=== PATIENT | female | born 1945 | race Caucasian/White ===

== ENCOUNTER 2019-07-16 14:36 | Inpatient (IN) | payer MEDICARE, OTHER ==
[~2019-07-16] VITALS: Ht 160 cm; Wt 82.1 kg
[2019-07-16 15:14] LABS: BASO % 1 % (0-3); EOS % 1 % (0-3); HEMATOCRIT 42.6 % (36.0-47.0); HEMOGLOBIN 14.2 g/dL (12.0-15.5); LYMPH # 2.4 x10^3/uL (1.0-4.8); LYMPH % 34 % (24-48); MEAN CORPUSCULAR HEMOGLOBIN 29 pg (25-35); MEAN CORPUSCULAR HGB CONC 33 g/dL (31-37); MEAN CORPUSCULAR VOLUME 88 fL (79-100); MONO # 0.4 x10^3/uL (0.0-1.1); MONO % 7 % (0-9); NEUT % 58 % (31-73); PLATELET COUNT 186 x10^3/uL (140-400); RED BLOOD COUNT 4.86 x10^6/uL (3.50-5.40); RED CELL DISTRIBUTION WIDTH 13.3 % (11.5-14.5); WHITE BLOOD COUNT 6.9 x10^3/uL (4.0-11.0)
[2019-07-16 15:26] LABS: BILIRUBIN,URINE NEG (NEG); CLARITY,URINE CLEAR; COLOR,URINE STRAW; GLUCOSE,URINE NEG (NEG)
[2019-07-16 15:27] LABS: BACTERIA,URINE 0 /HPF (0-FEW); NITRITE,URINE NEG (NEG); SQUAMOUS EPITHELIAL CELL,UR FEW /LPF; UROBILINOGEN,URINE 0.2 mg/dL (0.2 mg/dL)
[2019-07-16 15:28] LABS: AMPHETAMINE/METHAMPHETAMINE NEG (NEG); BARBITURATES NEG (NEG); BENZODIAZEPINES NEG (NEG); CANNABINOIDS NEG (NEG); COCAINE NEG (NEG); METHADONE NEG (NEG); OPIATES NEG (NEG); PHENCYCLIDINE NEG (NEG)
[2019-07-16 15:31] LABS: ALBUMIN 3.6 g/dL (3.4-5.0); CALCIUM 9.1 mg/dL (8.5-10.1); CREATININE 0.6 mg/dL (0.6-1.0); DIRECT BILIRUBIN 0.1 mg/dL (0.0-0.2); GFR 97.5; POTASSIUM 3.4 mmol/L (3.5-5.1); TOTAL BILIRUBIN 0.3 mg/dL (0.2-1.0); TOTAL PROTEIN 6.3 g/dL (6.4-8.2)
--- NOTE | 2019-07-16 15:39 | EKG ---
[address] [address] Test Date: 2019-07-16 Test Time: 15:06:05 Pat Name: LATISHA YANEZ Department: Room: Gender: F Advertising Strategist: BOBBI : 1945 Requested By: VAHE ALBRIGHT Order Number: [id number] Reading MD: Darrian Gruber MD Measurements Intervals [place] Rate: 74 P: 42 IL: 142 QRS: 20 QRSD: 70 T: 53 QT: 382 QTc: 424 Interpretive Statements SINUS RHYTHM Electronically Signed On 08-14-2019 16:25:20 ART FRAMING MANAGER by Darrian Grubre MD
--- NOTE | 2019-07-16 16:11 | PHYS DOC ---
Past History Past Medical History: Arthritis, Depression, GERD, Other Additional Past Medical Histor: AUTO-IMMUNE DISORDER Past Surgical History: No Surgical History Additional Past Surgical Histo: NO SURGICAL HISTORY PROVIDED Alcohol Use: None Drug Use: None Adult General Chief Complaint Chief Complaint: [facility] HPI Patient is a 74-year-old female who presents with complaint of feeling depressed and having a lot of anxiety. Patient states that she has been going through a great deal of stress over the last year. She denies any thoughts of harming herself but upon reviewing paperwork from doctor's office, patient reportedly had indicated that she was having some thoughts of self-harm. Patient denies any chest pain or shortness breath. She states that she just feels like she needs to get some help in dealing with all the stressors in her life right now.[] Review of Systems Review of Systems Constitutional: Denies fever or chills [] Respiratory: Denies cough or shortness of breath [] Cardiovascular: No additional information not addressed in HPI [] Integument: Denies rash or skin lesions [] Neurologic: Denies headache, focal weakness or sensory changes [] All other systems were reviewed and found to be within normal limits, except as documented in this note. Allergies Allergies Allergies Coded Allergies Type Severity Reaction Last Updated Verified morphine Allergy Unknown 07/16/19 Yes Physical Exam Physical Exam Constitutional: Well developed, well nourished, no acute distress, non-toxic appearance. [] HENT: Normocephalic, atraumatic, bilateral external ears normal, oropharynx moist, no oral exudates, nose normal. [] Eyes: PERRLA, EOMI, conjunctiva normal, no discharge. [] Neck: Normal range of motion, no tenderness, supple, no stridor. [] Cardiovascular: Regular rate and rhythm[] Lungs & Thorax: Bilateral breath sounds clear to auscultation [] Abdomen: Bowel sounds normal, soft, no tenderness. [] Skin: Warm, dry, no erythema, no rash. [] Extremities: No tenderness, no cyanosis, no clubbing, ROM intact. [] Neurologic: Alert and oriented X 3, no focal deficits noted. [] Psychologic: Flattened affect with depressed mood. [] Current Patient Data Vital Signs Vital Signs Date Time Temp Pulse Resp B/P (MAP) Pulse Ox O2 Delivery O2 Flow Rate FiO2 07/16/19 14:50 98.1 80 20 96 Room Air Lab Results Laboratory Tests Test 07/16/19 14:50 White Blood Count 6.9 x10^3/uL (4.0-11.0) Red Blood Count 4.86 x10^6/uL (3.50-5.40) Hemoglobin 14.2 g/dL (12.0-15.5) Hematocrit 42.6 % (36.0-47.0) Mean Corpuscular Volume 88 fL (79-100) Mean Corpuscular Hemoglobin 29 pg (25-35) Mean Corpuscular Hemoglobin Concent 33 g/dL (31-37) Red Cell Distribution Width 13.3 % (11.5-14.5) Platelet Count 186 x10^3/uL (140-400) Neutrophils (%) (Auto) 58 % (31-73) Lymphocytes (%) (Auto) 34 % (24-48) Monocytes (%) (Auto) 7 % (0-9) Eosinophils (%) (Auto) 1 % (0-3) Basophils (%) (Auto) 1 % (0-3) Neutrophils # (Auto) 4.0 x10^3uL (1.8-7.7) Lymphocytes # (Auto) 2.4 x10^3/uL (1.0-4.8) Monocytes # (Auto) 0.4 x10^3/uL (0.0-1.1) Eosinophils # (Auto) 0.0 x10^3/uL (0.0-0.7) Basophils # (Auto) 0.0 x10^3/uL (0.0-0.2) Urine Collection Type Unknown Urine Color Straw Urine Clarity Clear Urine pH 6.0 Urine Specific [place] <=1.005 Urine Protein Neg (NEG-TRACE) Urine Glucose (UA) Neg mg/dL (NEG) Urine Ketones (Stick) Neg mg/dL (NEG) Urine Blood Trace (NEG) Urine Nitrite Neg (NEG) Urine Bilirubin Neg (NEG) Urine Urobilinogen Dipstick 0.2 mg/dL (0.2 mg/dL) Urine Leukocyte Esterase Neg (NEG) Urine RBC 1-2 /HPF (0-2) Urine WBC 1-4 /HPF (0-4) Urine Squamous Epithelial Cells Few /LPF Urine Bacteria 0 /HPF (0-FEW) Sodium Level 145 mmol/L (136-145) Potassium Level 3.4 mmol/L (3.5-5.1) L Chloride Level 107 mmol/L (98-107) Carbon Dioxide Level 28 mmol/L (21-32) Anion Gap 10 (6-14) Blood Urea Nitrogen 5 mg/dL (7-20) L Creatinine 0.6 mg/dL (0.6-1.0) Estimated GFR (Cockcroft-Gault) 97.5 Glucose Level 92 mg/dL (70-99) Calcium Level 9.1 mg/dL (8.5-10.1) Total Bilirubin 0.3 mg/dL (0.2-1.0) Direct Bilirubin 0.1 mg/dL (0.0-0.2) Aspartate Amino Transferase (AST) 17 U/L (15-37) Alanine Aminotransferase (ALT) 26 U/L (14-59) Alkaline Phosphatase 70 U/L (46-116) Total Protein 6.3 g/dL (6.4-8.2) L Albumin 3.6 g/dL (3.4-5.0) Urine Opiates Screen Neg (NEG) Urine Methadone Screen Neg (NEG) Urine Barbiturates Neg (NEG) Urine Phencyclidine Screen Neg (NEG) Urine Amphetamine/Methamphetamine Neg (NEG) Urine Benzodiazepines Screen Neg (NEG) Urine Cocaine Screen Neg (NEG) Urine Cannabinoids Screen Neg (NEG) Ethyl Alcohol Level < 10 mg/dL (0-10) Urine Ethyl Alcohol Neg (NEG) EKG EKG [] Radiology/Procedures Radiology/Procedures [] Course & Med Decision Making Course & Med Decision Making Pertinent Labs and Imaging studies reviewed. (See chart for details) [] Dragon Disclaimer Dragon Disclaimer This electronic medical record was generated, in whole or in part, using a voice recognition dictation system. Departure Departure: Impression: Primary Impression: Depression Disposition: 09 ADMITTED INPATIENT Admitting Physician: Other (Dr. Moser) Condition: STABLE Referrals: NON,STAFF (PCP) Problem Qualifiers Primary Impression: Depression Depression Type: unspecified Qualified Codes: F32.9 - Major depressive disorder, single episode, unspecified VAHE ALBRIGHT Jr. DO Jul 16, 2019 16:11
[2019-07-16] MEDS ORDERED: CALC-584 PO (16:34)
[2019-07-16] MEDS ORDERED: MAGN250T2 PO (16:34)
[2019-07-16] MEDS ORDERED: FLUO20CA19 PO (16:34)
[2019-07-16] MEDS ORDERED: MULT1CAP15 PO (16:34)
[2019-07-16] MEDS ORDERED: PRED-220 PO (16:34)
[2019-07-16] MEDS ORDERED: TRIA15CR2 TP (16:34)
--- NOTE | 2019-07-16 18:30 | NUR ---
Admission Note with Justification for Admission to [facility] Patient admitted to [facility] for protective oversight for emergency stabilization of acute psychiatric crisis. Pt admitted from: Home via [facility] Emergency department Mode of arrival: EMS Accompanied By: Daughter/DPOA Precipitating behaviors that initiated intake and admission: Patient admitted from home for reportedly wishing she was , having decreased sleep, decreased appetite, being anxious, depressed, and hallucinating bugs all over her Description of failure of out patient attempts at stabilization in previous setting list behavior and medication trials: Patient's PCP recommended inpatient treatment Behaviors and assessment findings upon admission: Patient was anxious, cooperative, and coherent. She was upset when told that her stay would be for more than one day. She was dressed neatly and asked questions about the unit. Plan: Admit for protective oversight for adjustment and stabilization of medications, behaviors and mood. Intense treatment regimen including groups, medication adjustments, therapy, consistent regimen for ADL's, self care, and sleep hygiene. Daily monitoring by Inpatient staff, Psychiatry, and Medical Physician.
[2019-07-16 18:39] VITALS: BP 137/65
[2019-07-16] MEDS ORDERED: ACETAMINOPHEN 325 MG TABLET PO PRN (19:45)
--- NOTE | 2019-07-16 19:48 | PDOC ---
Exam Note: Braeden Note: Please also refer to the separate dictated note~for this date of service dictated separately. Discussed the patient with Nursing staff reviewed the chart.~Reviewed interim history and current functioning. Reviewed vital signs,~Labs/ Radiology~and current medications noted below. Continue current treatment with the changes noted in the dictated addendum note Assessment: Vital Signs/I&O: Vital Signs Date Time Temp Pulse Resp B/P (MAP) Pulse Ox O2 Delivery O2 Flow Rate FiO2 07/16/19 18:39 97.9 66 16 137/65 (89) 97 07/16/19 14:50 Room Air Labs: Laboratory Tests Test 07/16/19 14:50 White Blood Count 6.9 x10^3/uL (4.0-11.0) Red Blood Count 4.86 x10^6/uL (3.50-5.40) Hemoglobin 14.2 g/dL (12.0-15.5) Hematocrit 42.6 % (36.0-47.0) Mean Corpuscular Volume 88 fL (79-100) Mean Corpuscular Hemoglobin 29 pg (25-35) Mean Corpuscular Hemoglobin Concent 33 g/dL (31-37) Red Cell Distribution Width 13.3 % (11.5-14.5) Platelet Count 186 x10^3/uL (140-400) Neutrophils (%) (Auto) 58 % (31-73) Lymphocytes (%) (Auto) 34 % (24-48) Monocytes (%) (Auto) 7 % (0-9) Eosinophils (%) (Auto) 1 % (0-3) Basophils (%) (Auto) 1 % (0-3) Neutrophils # (Auto) 4.0 x10^3uL (1.8-7.7) Lymphocytes # (Auto) 2.4 x10^3/uL (1.0-4.8) Monocytes # (Auto) 0.4 x10^3/uL (0.0-1.1) Eosinophils # (Auto) 0.0 x10^3/uL (0.0-0.7) Basophils # (Auto) 0.0 x10^3/uL (0.0-0.2) Urine Collection Type Unknown Urine Color Straw Urine Clarity Clear Urine pH 6.0 Urine Specific [place] <=1.005 Urine Protein Neg (NEG-TRACE) Urine Glucose (UA) Neg mg/dL (NEG) Urine Ketones (Stick) Neg mg/dL (NEG) Urine Blood Trace (NEG) Urine Nitrite Neg (NEG) Urine Bilirubin Neg (NEG) Urine Urobilinogen Dipstick 0.2 mg/dL (0.2 mg/dL) Urine Leukocyte Esterase Neg (NEG) Urine RBC 1-2 /HPF (0-2) Urine WBC 1-4 /HPF (0-4) Urine Squamous Epithelial Cells Few /LPF Urine Bacteria 0 /HPF (0-FEW) Sodium Level 145 mmol/L (136-145) Potassium Level 3.4 mmol/L (3.5-5.1) L Chloride Level 107 mmol/L (98-107) Carbon Dioxide Level 28 mmol/L (21-32) Anion Gap 10 (6-14) Blood Urea Nitrogen 5 mg/dL (7-20) L Creatinine 0.6 mg/dL (0.6-1.0) Estimated GFR (Cockcroft-Gault) 97.5 Glucose Level 92 mg/dL (70-99) Calcium Level 9.1 mg/dL (8.5-10.1) Total Bilirubin 0.3 mg/dL (0.2-1.0) Direct Bilirubin 0.1 mg/dL (0.0-0.2) Aspartate Amino Transferase (AST) 17 U/L (15-37) Alanine Aminotransferase (ALT) 26 U/L (14-59) Alkaline Phosphatase 70 U/L (46-116) Total Protein 6.3 g/dL (6.4-8.2) L Albumin 3.6 g/dL (3.4-5.0) Urine Opiates Screen Neg (NEG) Urine Methadone Screen Neg (NEG) Urine Barbiturates Neg (NEG) Urine Phencyclidine Screen Neg (NEG) Urine Amphetamine/Methamphetamine Neg (NEG) Urine Benzodiazepines Screen Neg (NEG) Urine Cocaine Screen Neg (NEG) Urine Cannabinoids Screen Neg (NEG) Ethyl Alcohol Level < 10 mg/dL (0-10) Urine Ethyl Alcohol Neg (NEG) Current Medications: I have reviewed the current psychotropics carefully including drug interactions. Risk benefit ratio favors no change other than as noted in my dictated progress note. Diagnosis: Problems: (1) Depression (2) Anxiety disorder (3) Psychosis, atypical (4) Obsessive compulsive disorder JESSICA LINN MD Jul 16, 2019 19:48
--- NOTE | 2019-07-16 22:09 | NUR ---
Nursing Note Pt newly admitted, is in dayroom upon assessment is not happy she was admitted here. States all she did was go to her dr. wells today and wound up here. She says there is nothing wrong with her. Later she tells techs about how she is covered in bed bugs and they are crawling out of her pores. Pt is reluctant to talk to me during the interview, I had to drag the information out of her. She seems paranoid and suspicious of staff.
[2019-07-17 05:44] VITALS: BP 110/74
[2019-07-17] MEDS: MAGNESIUM OXIDE 400 MG TABLET PO SCH (08:21)
[2019-07-17] MEDS: TRIAMCINOLONE ACETONIDE 0.1% TOPICAL CREAM 15GM TUBE. TP SCH (08:21)
[2019-07-17] MEDS: CALCIUM CARB/VIT D3 500/200 TABLET PO SCH (08:21)
[2019-07-17] MEDS: MULTIVITAMIN with MINERAL TABLET. PO SCH (08:21)
[2019-07-17] MEDS: predniSONE 10 MG TABLET PO SCH (08:21)
[2019-07-17 08:35] LABS: BASO % 0 % (0-3); EOS % 1 % (0-3); HEMATOCRIT 41.9 % (36.0-47.0); HEMOGLOBIN 13.9 g/dL (12.0-15.5); LYMPH # 2.1 x10^3/uL (1.0-4.8); LYMPH % 32 % (24-48); MEAN CORPUSCULAR HEMOGLOBIN 29 pg (25-35); MEAN CORPUSCULAR HGB CONC 33 g/dL (31-37); MEAN CORPUSCULAR VOLUME 88 fL (79-100); MONO # 0.5 x10^3/uL (0.0-1.1); MONO % 8 % (0-9); NEUT # 3.9 x10^3uL (1.8-7.7); NEUT % 59 % (31-73); PLATELET COUNT 196 x10^3/uL (140-400); RED BLOOD COUNT 4.77 x10^6/uL (3.50-5.40); RED CELL DISTRIBUTION WIDTH 13.5 % (11.5-14.5); WHITE BLOOD COUNT 6.5 x10^3/uL (4.0-11.0)
[2019-07-17 08:49] LABS: ALBUMIN 3.6 g/dL (3.4-5.0); ALBUMIN/GLOBULIN RATIO 1.3 (1.0-1.7); CREATININE 0.5 mg/dL (0.6-1.0); GFR 120.3; MAGNESIUM 1.9 mg/dL (1.8-2.4); POTASSIUM 3.8 mmol/L (3.5-5.1); TOTAL BILIRUBIN 0.4 mg/dL (0.2-1.0); TOTAL PROTEIN 6.3 g/dL (6.4-8.2)
[2019-07-17] MEDS ORDERED: FLUoxetine HCL 20 MG CAPSULE PO SCH (09:00)
--- NOTE | 2019-07-17 10:03 | PN ---
DATE: 07/17/2019 PSYCHIATRIC PROGRESS NOTE This note covers the elements not covered in my initial note. SUBJECTIVE: I met with the patient in the morning of 07/17/2019. The patient states she slept reasonably well last night and in fact slept 5-1/4 hours. Appetite is fair. She is still depressed, still believes there are bugs coming out of her skin, but does not believe there are bed bugs here in the hospital. REVIEW OF SYSTEMS: No CV, , pulmonary, eye system symptoms on review. MENTAL STATUS EXAM: Oriented to herself and situation. Speech is coherent, abstraction fair, computation impaired, language function intact. Mood and affect still depressed, anxious, paranoid, psychotic. LABORATORY DATA: Reviewed. IMPRESSION: Major depressive disorder, recurrent with psychotic features, obsessive-compulsive disorder; anxiety disorder, unspecified; psychotic disorder, unspecified; mild cognitive impairment. PLAN: Continue Prozac 20 mg a day and I will give it another 24 hours and possibly add Risperdal at that stage. We may consider CT head if one has not been done recently. MAN Paula LINN MD DR: BENI/cynthia JOB#: [id number] / [id number]
--- NOTE | 2019-07-17 10:29 | HP ---
ADMIT DATE: 07/16/2019 PSYCHIATRIC ADMISSION HISTORY/EVALUATION This late entry 07/16/2019 covers elements not covered in my initial note 07/16/2019. SUBJECTIVE: I met with the patient evening of 07/16/2019, discussed with nursing staff, reviewed the chart and discussed with Kath Lee, talent coordinator, who obtained information from the patient's primary care provider at the [facility]. IDENTIFYING DATA: The patient is a 74-year-old female who lives in an independent apartment in [place], [place]. Reportedly, she has been increasingly depressed, isolative, withdrawn, hopeless, helpless, worthless, making statements that she wished she was . She is not sleeping well, has poor appetite, anxious, hallucinating, delusional, believing that there are bed bugs all over her bed and in her room despite repeated fumigations. She has failed outpatient psychiatric interventions, was referred for inpatient psychiatric stabilization. CHIEF COMPLAINT: "I collected the bed bugs. They took the bottle and said they were . Of course, they would be by then. They come out of my skin. They bite me. They said they do not see it, but bed bugs hide." HISTORY OF PRESENT ILLNESS: The patient reportedly relates being depressed for some time with marked insomnia, feeling hopeless, helpless, worthless, overwhelmed by the psychosocial stressors surrounding the bed bugs and having suicidal ideation. No plans, intent or attempt, however. No clear history of bipolar disorder. PAST PSYCHIATRIC HISTORY: As above. MEDICAL HISTORY: Positive for history of shingles, lymphoma in remission, polymyalgia rheumatica, rheumatoid arthritis, seborrheic keratoses. ACCU-CHEKS: None. DIET: Regular. MEDICATIONS: Takes them whole. Ambulates ad natividad. UA 07/16/2019 was negative. CODE STATUS: DNR. ALLERGIES: MORPHINE. CURRENT PSYCHOTROPICS: Prozac 20 mg a day. FAMILY HISTORY: Noncontributory. SOCIAL HISTORY: No history of alcohol, drug abuse, physical, sexual or elder abuse. She is not known to be a perpetrator. She states she used to work in the [employer]. REACTION TO HOSPITALIZATION: The patient accepting of it. ASSETS: Supportive family, stable living at the above facility other than the above stressors. MENTAL STATUS EXAMINATION: The patient was seen individually evening of 07/16/2019. She is well oriented, anxious, depressed. Speech is coherent, has some latency. Abstraction fair, computation impaired, language function intact. She is paranoid, suspicious, delusional, anxious, showing me tracks on her skin that she believes are caused by the bed bugs and other objects coming out of her body. No active suicidal or homicidal ideation. LABORATORY DATA: Reviewed. IMPRESSION: Major depressive disorder with psychotic features, obsessive-compulsive disorder; anxiety disorder, unspecified; psychotic disorder, unspecified; mild cognitive impairment. Rest unchanged as above. PLAN: Admit to geropsychiatry unit at [facility]. I will see the patient daily individually from a psychiatric standpoint. Medical followup with Dr. Yi. Continue the patient on her current psychotropics. Consider adding Risperdal 0.25 mg p.o. at bedtime for her psychosis after the baseline assessment. We will make further decisions about changes in psychotropics thereafter. Estimated length of stay 10-12 days. DISPOSITION: Plans perhaps back to the same assisted living. MAN Paula LINN MD DR: BEIN/cynthia JOB#: [id number] / [id number]
--- NOTE | 2019-07-17 11:52 | RAD ---
CT HEAD WO CONTRAST History: Mental status change Comparison: None. Technique: Noncontrast CT imaging was performed of the head. Exposure: One or more of the following individualized dose reduction techniques were utilized for this examination: 1. Automated exposure control 2. Adjustment of the mA and/or kV according to patient size 3. Use of iterative reconstruction technique. Findings: No acute extra-axial or parenchymal hemorrhage is identified. There is no significant intra-axial mass effect, midline shift, or extra-axial fluid collection. The delgado-white differentiation of the major vascular territories is preserved. Ventricular size is within normal limits. There is mild generalized supratentorial involutional change. The mastoid air cells and the visualized paranasal sinuses are aerated. No acute calvarial abnormality is identified. Impression: 1. No acute intracranial abnormality is identified. There is mild generalized supratentorial involutional change. Electronically signed by: Mike Inman MD (07/17/2019 11:49 AM) [facility]
[2019-07-17 12:06] LABS: THYROID STIM HORMONE (TSH) 3.141 uIU/mL (0.358-3.740)
[2019-07-17 16:10] VITALS: BP 107/70
--- NOTE | 2019-07-17 16:34 | NUR ---
Pt up adl to meals and out to groups. Pt told a detailed story about the bed bugs she had in her home and the ordeal she is having with the apartment managers regarding an exterminators. Pt very lucid regarding specific days she noticed symptoms, dates she went to and when she had her couch destroyed. Pt has been picking at clothing, hair and face saying she has some of the bugs. Most appeared to be skin scales, one had a red tint. Dr Yi took the samples on tape to lab. The red sample was ball of cloth fiber. Pt very adamant that all the things she is picking off self are bug. Has asked for tape to keep samples on.
--- NOTE | 2019-07-17 17:04 | NUR ---
Pt informed that samples she took off herself were not bed bugs. Pt stated she is not talking about bed bugs. She is talking about the bugs living in her skin. Stated the dried skin sample was from her head but that much skin should not be coming off her head. Pt description of "bugs" varied significantly.
[2019-07-17 17:07] LABS: THYROXINE 7.5 ug/dL (4.5-12.0)
--- NOTE | 2019-07-17 17:23 | CONS ---
DATE OF CONSULTATION: REASON FOR CONSULTATION: Consult for medical management. HISTORY OF PRESENT ILLNESS: The patient is a 74-year-old female patient, who was admitted on account from home for reportedly wishing she was , decreased sleep, decreased eating, anxious, depressed, hallucinating that bugs are all over her, all this in a background of a psychotic disorder. She described in detail what she found and how the bugs fall out from her hair and enter into her nose and her mouth and she in fact produced a sample of the bug that she sees and we actually looked at it under the microscope and it showed it was a clump of fibers from a sweater that she is wearing. Although the fact is that she might still have bedbugs at home, it is difficult without seeing actual bug too and given the elaborate story that she is telling us and that she had made a contract with the terminator and they could not see anything there, makes it unlikely that this is really a bug infestation. PAST MEDICAL HISTORY: Significant for lymphoma in remission. She also has a history of polymyalgia rheumatica and rheumatoid arthritis as well as a history of shingles and seborrheic keratosis. PAST SURGICAL HISTORY: Significant for hysterectomy. ALLERGIES: She is allergic to MORPHINE. MEDICATIONS: She is currently on following medications: She is on fluoxetine 20 mg once a day, calcium carbonate with vitamin D3 one tablet once a day, magnesium 250 mg once a day, and prednisone 10 mg once a day. She is also on triamcinolone acetonide applied topically daily for seborrheic keratoses and multivitamin 1 tablet once a day. FAMILY HISTORY: Unremarkable. SOCIAL HISTORY: She is and lives on her own in a subsidized apartment. Her daughter lives nearby. She apparently does not smoke, drink alcohol, or use any recreational drugs. PHYSICAL EXAMINATION: GENERAL: When I examined her, she was sitting comfortably on the chair, in no apparent respiratory distress. She was pale. No jaundice, cyanosis, or thyromegaly. No jugular venous distention. No limb edema. VITAL SIGNS: Her heart rate was 79, blood pressure was 107/70, temperature was 98.2, respiratory rate was 16, and oxygen saturation was 97% on room air. HEAD, EYES, EARS, NOSE, AND THROAT: Showed she is normocephalic and atraumatic. NECK: Supple. HEART: Showed normal first and second heart sounds. No gallop or murmur. CHEST: Clear to auscultation. No crepitation or rhonchi. ABDOMEN: Distended, soft, and nontender. NEUROLOGIC: She was awake, alert, and responding appropriately. All cranial nerves are intact. EXTREMITIES: She moves extremities without difficulty. She ambulates without assistance or assistive devices. LABORATORY WORK: Showed that her white cell count was 6900, hemoglobin 14, hematocrit 42, MCV 88, and platelet count of 186,000 with normal manual differential. Her chemistry showed a serum sodium of 143, potassium 3.8, chloride 107, bicarbonate 27, anion gap of 9, BUN 5, and creatinine was 0.5. Estimated GFR was 120 mL per minute. Her glucose was 107, calcium was 9, and magnesium was 1.9. Serum iron, TIBC, and iron saturation are all consistent with iron deficiency anemia. Her serum bilirubin, AST, ALT, and alkaline phosphatase were normal. Total protein was 6.3 and albumin 3.6. Her serum triglycerides were 165, total cholesterol was 229, LDL cholesterol was 146, VLDL was 33, and HDL was 50 and the ratio was 4. Her B12 was 405 pg/mL, 25-hydroxyvitamin D was 30, and TSH was normal at 313.141. Urinalysis was essentially unremarkable. Toxic screen was negative and her treponema pallidum antibodies were nonreactive. ASSESSMENT AND PLAN: In summary, this is a 74-year-old female patient, who was admitted on account of being depressed, wishing that she was , decreased sleep, decreased eating, anxious, depressed, and hallucinating that the bugs are all over her. She is here for inpatient psychiatric stabilization. From a medical point of view, she seemed to be generally stable. Her vital signs are all within normal range. Her lab work is also within normal range. She did produce a sample of what she says that is a bedbug, but looking at it under microscope showed it was a clump of fibers. It would be nice to talk to her daughter to see if there is any confirmation that she did have bugs at her house. Thank you, Dr. Moser for allowing me to participate in the care of this patient. TRUDI MATAMOROS MD DR: MAEVE/cynthia JOB#: [id number] / [id number]
--- NOTE | 2019-07-17 20:34 | PDOC ---
Exam Note: Braeden Note: Please also refer to the separate dictated note~for this date of service dictated separately.~Patient seen individually. Discussed the patient with Nursing staff reviewed the chart.~Reviewed interim history and current functioning. Reviewed vital signs,~Labs/ Radiology~and current medications noted below. Continue current treatment with the changes noted in the dictated addendum note Assessment: Vital Signs/I&O: Vital Signs Date Time Temp Pulse Resp B/P (MAP) Pulse Ox O2 Delivery O2 Flow Rate FiO2 07/17/19 16:10 98.2 79 16 107/70 (82) 97 07/16/19 14:50 Room Air I & O 07/16/19 07/16/19 07/17/19 15:00 23:00 07:00 Intake Total 240 ml Balance 240 ml Labs: Laboratory Tests Test 07/17/19 07:55 White Blood Count 6.5 x10^3/uL (4.0-11.0) Red Blood Count 4.77 x10^6/uL (3.50-5.40) Hemoglobin 13.9 g/dL (12.0-15.5) Hematocrit 41.9 % (36.0-47.0) Mean Corpuscular Volume 88 fL (79-100) Mean Corpuscular Hemoglobin 29 pg (25-35) Mean Corpuscular Hemoglobin Concent 33 g/dL (31-37) Red Cell Distribution Width 13.5 % (11.5-14.5) Platelet Count 196 x10^3/uL (140-400) Neutrophils (%) (Auto) 59 % (31-73) Lymphocytes (%) (Auto) 32 % (24-48) Monocytes (%) (Auto) 8 % (0-9) Eosinophils (%) (Auto) 1 % (0-3) Basophils (%) (Auto) 0 % (0-3) Neutrophils # (Auto) 3.9 x10^3uL (1.8-7.7) Lymphocytes # (Auto) 2.1 x10^3/uL (1.0-4.8) Monocytes # (Auto) 0.5 x10^3/uL (0.0-1.1) Eosinophils # (Auto) 0.0 x10^3/uL (0.0-0.7) Basophils # (Auto) 0.0 x10^3/uL (0.0-0.2) Sodium Level 143 mmol/L (136-145) Potassium Level 3.8 mmol/L (3.5-5.1) Chloride Level 107 mmol/L (98-107) Carbon Dioxide Level 27 mmol/L (21-32) Anion Gap 9 (6-14) Blood Urea Nitrogen 5 mg/dL (7-20) L Creatinine 0.5 mg/dL (0.6-1.0) L Estimated GFR (Cockcroft-Gault) 120.3 BUN/Creatinine Ratio 10 (6-20) Glucose Level 107 mg/dL (70-99) H Calcium Level 9.0 mg/dL (8.5-10.1) Magnesium Level 1.9 mg/dL (1.8-2.4) Iron Level 60 ug/dL (50-170) Total Iron Binding Capacity 309 ug/dL (250-450) Iron Saturation 19 % (15-34) Total Bilirubin 0.4 mg/dL (0.2-1.0) Aspartate Amino Transferase (AST) 20 U/L (15-37) Alanine Aminotransferase (ALT) 26 U/L (14-59) Alkaline Phosphatase 74 U/L (46-116) Total Protein 6.3 g/dL (6.4-8.2) L Albumin 3.6 g/dL (3.4-5.0) Albumin/Globulin Ratio 1.3 (1.0-1.7) Triglycerides Level 165 mg/dL (0-150) H Cholesterol Level 229 mg/dL (0-200) H LDL Cholesterol, Calculated 146 mg/dL (0-100) H VLDL Cholesterol, Calculated 33 mg/dL (0-40) Non-HDL Cholesterol Calculated 179 mg/dL (0-129) H HDL Cholesterol 50 mg/dL (40-60) Cholesterol/HDL Ratio 4.0 Vitamin B12 Level 405 pg/mL (247-911) 25-Hydroxy Vitamin D Total 30.5 ng/mL (30-100) Thyroid Stimulating Hormone (TSH) 3.141 uIU/mL (0.358-3.740) Thyroxine (T4) 7.5 ug/dL (4.5-12.0) Total Triiodothyronine (TT3) 150 ng/dL (71-180) Treponema pallidum Antibody Nonreactive (Nonreactive) Current Medications: Meds: Current Medications Medications (Trade) Dose Ordered Sig/Meagahn Route PRN Reason Start Time Stop Time Status Last Admin Dose Admin Fluoxetine HCl (PROzac) 20 mg DAILY PO 07/17/19 09:00 07/17/19 10:17 DC 07/17/19 08:21 Prednisone (Prednisone) 10 mg DAILY PO 07/17/19 09:00 07/17/19 08:21 Calcium/Vitamin D (Oscal D 500mg/ 200uts) 1 tab DAILY PO 07/17/19 09:00 07/17/19 08:21 Magnesium Oxide (Magnesium Oxide) 400 mg DAILY PO 07/17/19 09:00 07/17/19 08:21 Multivitamins/ Calcium (Thera-M Plus) 1 tab DAILY PO 07/17/19 09:00 07/17/19 08:21 Triamcinolone Acetonide (Kenalog) 1 alessia DAILY TP 07/17/19 09:00 07/17/19 08:21 I have reviewed the current psychotropics carefully including drug interactions. Risk benefit ratio favors no change other than as noted in my dictated progress note. Diagnosis: Problems: (1) Depression (2) Anxiety disorder (3) Psychosis, atypical (4) Obsessive compulsive disorder (5) Major depressive disorder, recurrent episode (6) Impulse control disorder JESSICA LINN MD Jul 17, 2019 20:34
--- NOTE | 2019-07-18 06:11 | NUR ---
Nursing Note the patient was very withdrawn this shift and spent most of her time in her room. The patient was appropriate during interactions with staff and peers. The patient is currently sleeping in her room.
[2019-07-18 06:24] VITALS: BP 114/71
[2019-07-18] MEDS: predniSONE 10 MG TABLET PO SCH (08:56)
[2019-07-18] MEDS: CALCIUM CARB/VIT D3 500/200 TABLET PO SCH (08:56)
[2019-07-18] MEDS: MULTIVITAMIN with MINERAL TABLET. PO SCH (08:56)
[2019-07-18] MEDS: TRIAMCINOLONE ACETONIDE 0.1% TOPICAL CREAM 15GM TUBE. TP SCH (08:56)
[2019-07-18] MEDS: MAGNESIUM OXIDE 400 MG TABLET PO SCH (08:56)
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
--- NOTE | 2019-07-18 12:05 | NUR ---
Patient has been calm, compliant, and pleasant today. She has been helpful with other patients, and stated she feels better being here and away from her apartment. She states she can feel bugs crawling on her head and down her body, and that her apartment is riddled with bed bugs. No insects observed on patient. Patient also states concern that the Prozac was discontinued, informed patient that we could discuss it with the MD. Will report to MD and continue to monitor.
[2019-07-18 15:31] VITALS: BP 109/70
[2019-07-18] MEDS: MAGNESIUM HYDROXIDE 2,400 MG/30 ML ORAL.SUSP. PO PRN (15:59)
[2019-07-18] MEDS: risperiDONE 0.25 MG TABLET. PO SCH (19:51)
--- NOTE | 2019-07-18 20:02 | PDOC ---
Exam Note: Braeden Note: Please also refer to the separate dictated note~for this date of service dictated separately.~Patient seen individually. Discussed the patient with Nursing staff reviewed the chart.~Reviewed interim history and current functioning. Reviewed vital signs,~Labs/ Radiology~and current medications noted below. Continue current treatment with the changes noted in the dictated addendum note Assessment: Vital Signs/I&O: Vital Signs Date Time Temp Pulse Resp B/P (MAP) Pulse Ox O2 Delivery O2 Flow Rate FiO2 07/18/19 15:31 98.4 72 16 109/70 (83) 96 07/18/19 06:24 Room Air I & O 07/17/19 07/17/19 07/18/19 14:59 22:59 06:59 Intake Total 600 ml 480 ml Balance 600 ml 480 ml Current Medications: Meds: Current Medications Medications (Trade) Dose Ordered Sig/Meaghan Route PRN Reason Start Time Stop Time Status Last Admin Dose Admin Risperidone (RisperDAL) 0.25 mg QHS PO 07/18/19 21:00 07/18/19 19:51 I have reviewed the current psychotropics carefully including drug interactions. Risk benefit ratio favors no change other than as noted in my dictated progress note. Diagnosis: Problems: (1) Depression (2) Anxiety disorder (3) Psychosis, atypical (4) Obsessive compulsive disorder (5) Major depressive disorder, recurrent episode (6) Impulse control disorder JESSICA LINN MD Jul 18, 2019 20:02
[2019-07-19 03:08] LABS: HEMOGLOBIN A1C 5.1 % (4.8-5.6)
--- NOTE | 2019-07-19 04:00 | NUR ---
Nursing Note The patient was compliant with her medication and was appropriate during interactions with this nurse. The patient did not talk as much this shift about insects in her apartment. The patient is currently sleeping in her room.
[2019-07-19 05:55] VITALS: BP 126/69
[2019-07-19] MEDS: TRIAMCINOLONE ACETONIDE 0.1% TOPICAL CREAM 15GM TUBE. TP SCH (08:17)
[2019-07-19] MEDS: MULTIVITAMIN with MINERAL TABLET. PO SCH (08:17)
[2019-07-19] MEDS: MAGNESIUM OXIDE 400 MG TABLET PO SCH (08:17)
[2019-07-19] MEDS: FLUoxetine HCL 20 MG CAPSULE PO SCH (08:17)
[2019-07-19] MEDS: predniSONE 10 MG TABLET PO SCH (08:17)
[2019-07-19] MEDS: CALCIUM CARB/VIT D3 500/200 TABLET PO SCH (08:17)
--- NOTE | 2019-07-19 09:51 | NUR ---
Pt is calm, cooperative, compliant. No agitation, no aggression. She denies hallucinations. No hallucinations and delusions noted. States she is hear for depression and anxiety. She is A & O X 4.
--- NOTE | 2019-07-19 14:15 | NUR ---
ACTIVITY THERAPY ASSESSMENT Completed based on observation and interview. Pt. was in her room, laying in bed but was agreeable to speak with CLOUD SOFTWARE ENGINEER. When asked about leisure interest and hobbies, she explained it has been difficult the last two months. She explained there were bed bugs in her apartment and this happened a few years ago. A few years ago though, she was given Permethrin cream to cover her entire body with for 24 hours which seemed to help but she didnt have that cream this time. Pt. 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 She enjoys meeting with her mandaen friends and studying the bible. Pt. spoke about her depression, overwhelming thoughts, negative thinking, skin issues, and being hard on herself. At one point, she stopped, scratched her hair/shaking her head to show flakes falling out (only one small dot did). She also grabbed a black blanket and rubbed in on her arm and leg to show the white residue that came off, she explained this happened because of the bed bugs that leave behind something that doubles skin cells. CLOUD SOFTWARE ENGINEER wore a black shirt that day, rubbed her shirt along her arm which also left behind a white residue. Pt. confirmed she saw that but said hers was different. Pt. talked in more detail about her thoughts: finding/focusing on the negatives, comparing her troubles with others and thinking she should be doing better, wondering if she was a good enough mother, having difficulty naming any positive qualities, and she shared she didnt want to kill herself but wanted to . CLOUD SOFTWARE ENGINEER and Pt. talked about benefits of journaling and the possibility of long wall shear operator/consistent counseling. Pt. was concerned about being here and missing appointments she has scheduled but CLOUD SOFTWARE ENGINEER reassured her that her Extractor Tender Raw Stock will be assisting in communicating with her family and any doctor offices. Pt. is willing to go to all groups and would like to try journaling and wants to start a gratitude list. Initial goal aimed to increase self-esteem and engagement: Pt. will participate in all Activity Therapy groups that are offered. Addendum: 07/26/19 at 1528 by CHRISTIN WOMACK ACT Journal with prompts and felt tipped pen with metal cap clip removed was given to Pt. on this day at 1300. Along with these materials, CLOUD SOFTWARE ENGINEER provided Pt. with a print out of bible verses on anxiety and fear that she requested.
[2019-07-19 15:46] VITALS: BP 130/77
[2019-07-19] MEDS: risperiDONE 0.25 MG TABLET. PO SCH (19:11)
--- NOTE | 2019-07-19 20:42 | NUR ---
Nursing Note The patient was calm and cooperative with her assessment and medication pass. The patient was calmly talking with another patient in the hallway. The patient took her medication whole.
--- NOTE | 2019-07-19 21:49 | PDOC ---
Exam Note: Braeden Note: Please also refer to the separate dictated note~for this date of service dictated separately.~Patient seen individually. Discussed the patient with Nursing staff reviewed the chart.~Reviewed interim history and current functioning. Reviewed vital signs,~Labs/ Radiology~and current medications noted below. Continue current treatment with the changes noted in the dictated addendum note Assessment: Vital Signs/I&O: Vital Signs Date Time Temp Pulse Resp B/P (MAP) Pulse Ox O2 Delivery O2 Flow Rate FiO2 07/19/19 15:46 97.4 60 16 130/77 (94) 95 07/18/19 06:24 Room Air I & O 07/18/19 07/18/19 07/19/19 15:00 23:00 07:00 Intake Total 600 ml 480 ml Balance 600 ml 480 ml Current Medications: Meds: Current Medications Medications (Trade) Dose Ordered Sig/Meaghan Route PRN Reason Start Time Stop Time Status Last Admin Dose Admin Fluoxetine HCl (PROzac) 20 mg DAILY PO 07/19/19 09:00 07/19/19 08:17 I have reviewed the current psychotropics carefully including drug interactions. Risk benefit ratio favors no change other than as noted in my dictated progress note. Diagnosis: Problems: (1) Depression (2) Anxiety disorder (3) Psychosis, atypical (4) Obsessive compulsive disorder (5) Major depressive disorder, recurrent episode (6) Impulse control disorder JESSICA LINN MD Jul 19, 2019 21:49
[2019-07-20 05:50] VITALS: BP 110/74
[2019-07-20] MEDS: CALCIUM CARB/VIT D3 500/200 TABLET PO SCH (08:21)
[2019-07-20] MEDS: predniSONE 10 MG TABLET PO SCH (08:21)
[2019-07-20] MEDS: MAGNESIUM OXIDE 400 MG TABLET PO SCH (08:21)
[2019-07-20] MEDS: TRIAMCINOLONE ACETONIDE 0.1% TOPICAL CREAM 15GM TUBE. TP SCH (08:22)
[2019-07-20] MEDS: FLUoxetine HCL 20 MG CAPSULE PO SCH (08:22)
[2019-07-20] MEDS: MULTIVITAMIN with MINERAL TABLET. PO SCH (08:22)
--- NOTE | 2019-07-20 10:20 | NUR ---
No agitation, no aggression. Pt is calm, cooperative, compliant. She denies hallucinations. No hallucinations and delusions noted. States she is hear for depression and anxiety. She is A & O X 4.
[2019-07-20 16:06] VITALS: BP 125/74
[2019-07-20] MEDS: risperiDONE 0.25 MG TABLET. PO SCH (20:08)
[2019-07-20] MEDS: MAGNESIUM HYDROXIDE 2,400 MG/30 ML ORAL.SUSP. PO PRN (20:13)
--- NOTE | 2019-07-20 20:33 | PDOC ---
Exam Note: Braeden Note: Please also refer to the separate dictated note~for this date of service dictated separately.~Patient seen individually. Discussed the patient with Nursing staff reviewed the chart.~Reviewed interim history and current functioning. Reviewed vital signs,~Labs/ Radiology~and current medications noted below. Continue current treatment with the changes noted in the dictated addendum note Assessment: Vital Signs/I&O: Vital Signs Date Time Temp Pulse Resp B/P (MAP) Pulse Ox O2 Delivery O2 Flow Rate FiO2 07/20/19 16:06 97.6 70 16 125/74 (91) 97 07/18/19 06:24 Room Air I & O 07/19/19 07/19/19 07/20/19 14:59 22:59 06:59 Intake Total 480 ml 220 ml Balance 480 ml 220 ml Current Medications: I have reviewed the current psychotropics carefully including drug interactions. Risk benefit ratio favors no change other than as noted in my dictated progress note. Diagnosis: Problems: (1) Anxiety disorder (2) Psychosis, atypical (3) Obsessive compulsive disorder (4) Major depressive disorder, recurrent episode (5) Impulse control disorder JESSICA LINN MD Jul 20, 2019 20:33
--- NOTE | 2019-07-20 21:47 | PN ---
DATE: 07/18/2019 PSYCHIATRIC PROGRESS NOTE This late entry 07/18/2019 covers elements not covered in my initial note. SUBJECTIVE: I met with the patient individually. Per nursing report, the patient has been hyperverbal. The nursing staff had called me as an emergency wondering if the Prozac could be contributing to the itching in her head and had discontinued it at the time. As I discussed this with the patient, she stated she has been on Prozac for about 14 years, never had that problem, does not believe the itching is related to the Prozac once it was restarted and we will go ahead and do that. The patient remains a little paranoid. She has been less obsessed about bugs all over her body. REVIEW OF SYSTEMS: Positive for some tiredness. No CV, , pulmonary, eye system symptoms on review. MENTAL STATUS EXAM: Oriented reasonably. Speech coherent, abstraction fair, computation somewhat impaired, language function intact, attention span short. Mood and affect remain somewhat anxious, slightly paranoid, obsessive. LABORATORY DATA: Reviewed. IMPRESSION: Unchanged from initial note. PLAN: Restart Prozac, start Risperdal 0.25 mg p.o. at bedtime to augment the Prozac and as an atypical antipsychotic. Rest unchanged for now. JESSICA LINN MD DR: BENI/cynthia JOB#: [id number] / [id number]
--- NOTE | 2019-07-20 22:21 | PN ---
DATE: 07/19/2019 PSYCHIATRIC PROGRESS NOTE This late entry date of service 07/19/2019 covers the elements not covered in my initial note. SUBJECTIVE: I met with the patient individually. Overall, the patient states she is doing better. She was restarted back on Prozac 20 mg a day. She is still somewhat delusional similar to what brought her into the hospital and we added Risperdal 0.25 mg p.o. at bedtime. REVIEW OF SYSTEMS: No CV, , pulmonary, eye system symptoms on review. MENTAL STATUS EXAM: Reasonably oriented. Speech is coherent, abstraction fair, computation impaired, language function intact. Mood and affect is improved. LABORATORY DATA: Reviewed. IMPRESSION: Major depressive disorder with psychotic features, obsessive-compulsive delusional disorder versus psychotic disorder, unspecified. Rest unchanged. PLAN: Maintain Prozac and Risperdal at current dosage. We will make further adjustments as clinically indicated. JESSICA LINN MD DR: BENI/cynthia JOB#: [id number] / [id number]
--- NOTE | 2019-07-20 22:37 | NUR ---
Nursing Note Pt denies SI, hallucinations, and no evidence of delusions. Compliant and cooperative with meds.
[2019-07-21 06:09] VITALS: BP 127/77
[2019-07-21] MEDS: predniSONE 10 MG TABLET PO SCH (07:57)
[2019-07-21] MEDS: CALCIUM CARB/VIT D3 500/200 TABLET PO SCH (07:57)
[2019-07-21] MEDS: MAGNESIUM OXIDE 400 MG TABLET PO SCH (07:57)
[2019-07-21] MEDS: FLUoxetine HCL 20 MG CAPSULE PO SCH (07:57)
[2019-07-21] MEDS: MULTIVITAMIN with MINERAL TABLET. PO SCH (07:58)
[2019-07-21] MEDS: TRIAMCINOLONE ACETONIDE 0.1% TOPICAL CREAM 15GM TUBE. TP SCH (07:58)
[2019-07-21] MEDS: METHYL SALICYLATE/MENTHOL TOPICAL OINTMENT 57GM TUBE. TP PRN (09:00)
--- NOTE | 2019-07-21 11:22 | NUR ---
KENNA spoke to pt. at pt. request. Pt. has an appointment with her Hair Machine Operator on 07/23/2019 and would like it to be changed to the first Sunday in August. Pt. was also inquiring about outpatient therapy. KENNA discussed with pt. the services provided by the [facility], which pt. appear willing to try. Lastly, pt. asked about discharge. KENNA reported a discharge date has not been set, as the doctor may still be adjusting pt. medications and may want to address her lack of sleep. KENNA called pt. daughter, Nancy, who reports she will change pt. Rheumatology appointment. Nancy is concerned pt. may return to her previous behaviors when she returns home but does plan to stop by the apartment complex to discuss the matter with the supply manager. KENNA shared pt. inquired about outpatient therapy and suggested at time of discharge they go straight to the [facility] for pt. intake.
[2019-07-21] MEDS ORDERED: SODIUM CHLORIDE 0.65% NASAL SPRAY 45ML BOTTLE. NS PRN (13:45)
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
[2019-07-21 16:03] VITALS: BP 98/63
[2019-07-21] MEDS ORDERED: MELATONIN 3 MG TABLET PO PRN (18:30)
--- NOTE | 2019-07-21 18:30 | NUR ---
patient has been calm, compliant, and appropriate today. She has been social with peers and interactive cody group activities. Patient expressed concerns about changing a MD appt she has on Sunday and needing therapy after discharge, informed patient I would pass her concerns on to SW. Will continue to monitor and report to oncoming shift.
[2019-07-21] MEDS: risperiDONE 0.25 MG TABLET. PO SCH (19:50)
--- NOTE | 2019-07-21 20:50 | PDOC ---
Exam Note: Braeden Note: Please also refer to the separate dictated note~for this date of service dictated separately.~Patient seen individually. Discussed the patient with Nursing staff reviewed the chart.~Reviewed interim history and current functioning. Reviewed vital signs,~Labs/ Radiology~and current medications noted below. Continue current treatment with the changes noted in the dictated addendum note Assessment: Vital Signs/I&O: Vital Signs Date Time Temp Pulse Resp B/P (MAP) Pulse Ox O2 Delivery O2 Flow Rate FiO2 07/21/19 16:03 97.8 89 16 98/63 (75) 97 07/18/19 06:24 Room Air I & O 07/20/19 07/20/19 07/21/19 15:00 23:00 07:00 Intake Total 720 ml 720 ml Balance 720 ml 720 ml Current Medications: Meds: Current Medications Medications (Trade) Dose Ordered Sig/Meaghan Route PRN Reason Start Time Stop Time Status Last Admin Dose Admin Melatonin (Melatonin) 3 mg PRN QHS PRN PO INSOMNIA 07/21/19 18:30 07/21/19 19:56 I have reviewed the current psychotropics carefully including drug interactions. Risk benefit ratio favors no change other than as noted in my dictated progress note. Diagnosis: Problems: (1) Depression (2) Anxiety disorder (3) Psychosis, atypical (4) Obsessive compulsive disorder (5) Major depressive disorder, recurrent episode (6) Impulse control disorder JESSICA LINN MD Jul 21, 2019 20:50
--- NOTE | 2019-07-21 22:15 | PN ---
DATE: 07/20/2019 PSYCHIATRIC PROGRESS NOTE This late entry 07/20/2019 covers elements not covered in my initial note. SUBJECTIVE: I met with the patient in the evening of 07/20/2019. Overall, the patient seems to be doing better, a little more interactive. She has not talked about suicidal ideation or hallucinating with bugs all over. She is tolerating Prozac 20 mg a day, Risperdal 0.25 mg daily. REVIEW OF SYSTEMS: No CV, , pulmonary, eye system symptoms on review. MENTAL STATUS EXAM: Reasonably oriented. Speech is coherent, abstraction fair, computation impaired, language function intact. Mood and affect is improved. LABORATORY DATA: Reviewed. IMPRESSION: Unchanged from initial note. PLAN: No change from initial note. MAN Paula LINN MD DR: BENI/cynthia JOB#: [id number] / [id number]
--- NOTE | 2019-07-21 23:19 | NUR ---
Nursing Note Pt denies SI, hallucinations, and no evidence of delusions. Compliant and cooperative with meds. Complains of a dry nose, saline spray given.
[2019-07-22 05:42] VITALS: BP 120/75
[2019-07-22] MEDS: MULTIVITAMIN with MINERAL TABLET. PO SCH (08:26)
[2019-07-22] MEDS: predniSONE 10 MG TABLET PO SCH (08:26)
[2019-07-22] MEDS: FLUoxetine HCL 20 MG CAPSULE PO SCH (08:26)
[2019-07-22] MEDS: CALCIUM CARB/VIT D3 500/200 TABLET PO SCH (08:26)
[2019-07-22] MEDS: MAGNESIUM OXIDE 400 MG TABLET PO SCH (08:26)
[2019-07-22] MEDS: TRIAMCINOLONE ACETONIDE 0.1% TOPICAL CREAM 15GM TUBE. TP SCH (08:26)
[2019-07-22] MEDS: METHYL SALICYLATE/MENTHOL TOPICAL OINTMENT 57GM TUBE. TP PRN (09:58)
[2019-07-22 15:44] VITALS: BP 105/56
--- NOTE | 2019-07-22 16:49 | NUR ---
Patient has been calm, compliant, and appropriate today. She has been social with peers and interactive during group activities. Patient spent most of the shift in the day room working on Foxtrotgsaw puzzles. Will continue to monitor and report to oncoming shift.
[2019-07-22] MEDS: MELATONIN 3 MG TABLET PO SCH (20:24)
[2019-07-22] MEDS: risperiDONE 0.25 MG TABLET. PO SCH (20:24)
[2019-07-22] MEDS: MAGNESIUM HYDROXIDE 2,400 MG/30 ML ORAL.SUSP. PO PRN (20:30)
--- NOTE | 2019-07-22 20:33 | PDOC ---
Exam Note: Braeden Note: Please also refer to the separate dictated note~for this date of service dictated separately.~Patient seen individually. Discussed the patient with Nursing staff reviewed the chart.~Reviewed interim history and current functioning. Reviewed vital signs,~Labs/ Radiology~and current medications noted below. Continue current treatment with the changes noted in the dictated addendum note Assessment: Vital Signs/I&O: Vital Signs Date Time Temp Pulse Resp B/P (MAP) Pulse Ox O2 Delivery O2 Flow Rate FiO2 07/22/19 15:44 97.6 69 16 105/56 (72) 93 07/18/19 06:24 Room Air I & O 07/21/19 07/21/19 07/22/19 15:00 23:00 07:00 Intake Total 840 ml 900 ml Balance 840 ml 900 ml Current Medications: Meds: Current Medications Medications (Trade) Dose Ordered Sig/Meaghan Route PRN Reason Start Time Stop Time Status Last Admin Dose Admin Melatonin (Melatonin) 3 mg QHS PO 07/22/19 21:00 07/22/19 20:24 I have reviewed the current psychotropics carefully including drug interactions. Risk benefit ratio favors no change other than as noted in my dictated progress note. Diagnosis: Problems: (1) Anxiety disorder (2) Psychosis, atypical (3) Obsessive compulsive disorder (4) Major depressive disorder, recurrent episode (5) Impulse control disorder JESSICA LINN MD Jul 22, 2019 20:33
--- NOTE | 2019-07-22 21:08 | PN ---
DATE: 07/21/2019 PSYCHIATRIC PROGRESS NOTE This late entry 07/21/2019 covers elements not covered in my initial note. SUBJECTIVE: I met with the patient evening of 07/21/2019. Per SHEBA Doe, the patient slept 6-1/2 hours previous night. She has denied feeling bugs all over her body, which is an improvement. She states she did not sleep at night, wants to try melatonin, which we will start 3 mg at bedtime. REVIEW OF SYSTEMS: No CV, , pulmonary, eye system symptoms on review. MENTAL STATUS EXAM: Reasonably oriented. Speech coherent, somewhat rapid at times. Abstraction fair, computation impaired, language function intact, attention span short. Mood and affect is improved. LABORATORY DATA: Reviewed. IMPRESSION: Unchanged from initial note. PLAN: No change from initial note other than noted above. MAN Paula LINN MD DR: BENI/cynthia JOB#: [id number] / [id number]
--- NOTE | 2019-07-22 23:30 | NUR ---
Pt located in the dayroom this evening, interacting with another female peer and completing a puzzle. Pt calm and compliant with whole medications. PRN MOM administered per pt request.
[2019-07-23 05:57] VITALS: BP 118/64
[2019-07-23 07:06] LABS: BASO % 0 % (0-3); EOS % 1 % (0-3); HEMATOCRIT 42.6 % (36.0-47.0); HEMOGLOBIN 13.8 g/dL (12.0-15.5); LYMPH # 2.3 x10^3/uL (1.0-4.8); LYMPH % 37 % (24-48); MEAN CORPUSCULAR HEMOGLOBIN 29 pg (25-35); MEAN CORPUSCULAR HGB CONC 32 g/dL (31-37); MEAN CORPUSCULAR VOLUME 88 fL (79-100); MONO # 0.5 x10^3/uL (0.0-1.1); MONO % 8 % (0-9); NEUT # 3.4 x10^3uL (1.8-7.7); NEUT % 53 % (31-73); PLATELET COUNT 201 x10^3/uL (140-400); RED BLOOD COUNT 4.83 x10^6/uL (3.50-5.40); RED CELL DISTRIBUTION WIDTH 13.4 % (11.5-14.5); WHITE BLOOD COUNT 6.3 x10^3/uL (4.0-11.0)
[2019-07-23 07:25] LABS: ALBUMIN 3.4 g/dL (3.4-5.0); ALBUMIN/GLOBULIN RATIO 1.3 (1.0-1.7); CALCIUM 8.9 mg/dL (8.5-10.1); CREATININE 0.5 mg/dL (0.6-1.0); GFR 120.3; POTASSIUM 3.8 mmol/L (3.5-5.1); TOTAL BILIRUBIN 0.3 mg/dL (0.2-1.0); TOTAL PROTEIN 6.1 g/dL (6.4-8.2)
[2019-07-23] MEDS: MULTIVITAMIN with MINERAL TABLET. PO SCH (08:16)
[2019-07-23] MEDS: predniSONE 10 MG TABLET PO SCH (08:16)
[2019-07-23] MEDS: TRIAMCINOLONE ACETONIDE 0.1% TOPICAL CREAM 15GM TUBE. TP SCH (08:16)
[2019-07-23] MEDS: MAGNESIUM OXIDE 400 MG TABLET PO SCH (08:16)
[2019-07-23] MEDS: CALCIUM CARB/VIT D3 500/200 TABLET PO SCH (08:16)
[2019-07-23] MEDS: FLUoxetine HCL 20 MG CAPSULE PO SCH (08:17)
--- NOTE | 2019-07-23 14:21 | NUR ---
SW spoke to pt. daughter, Nancy, who called due to missing a call from the hospital. Pt. was the one attempting to contact daughter regarding paying her rent and phone. Nancy reports she did pay these bills earlier in the week. KENNA shared this information with pt. Nancy requested SW begin talking with pt. 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 SW will make time each day to meet with pt. to discuss these matters. Nancy also reported pt. did mention "the bugs" to her family earlier in the week, as she had asked if pt. had said anything about them to this SW, which pt. has not.
[2019-07-23 15:39] VITALS: BP 102/64
--- NOTE | 2019-07-23 18:09 | NUR ---
Patient has been calm, compliant, and appropriate today. She has been social with peers and interactive during group activities. Patient spent most of the shift in the day room working on jigsaw puzzles between groups and meals. Will continue to monitor and report to oncoming shift.
[2019-07-23] MEDS: risperiDONE 0.25 MG TABLET. PO SCH (20:05)
[2019-07-23] MEDS: MELATONIN 3 MG TABLET PO SCH (20:05)
[2019-07-23] MEDS ORDERED: POLYETHYLENE GLYCOL 3350 17 GM PACKET. PO PRN (20:15)
--- NOTE | 2019-07-23 21:31 | PN ---
DATE: 07/22/2019 PSYCHIATRIC PROGRESS NOTE This late entry 07/22/2019 covers the elements not covered in my initial note. SUBJECTIVE: I met with the patient in the evening of 07/22/2019. Per SHEBA Doe, the patient slept 7 hours previous night. She has had a good day and is doing better. Cognitively, she seems intact, less depressed, anxious, less obsessed about things coming out of her skin. REVIEW OF SYSTEMS: Still has some perception of things coming out of her skin, but much less than before. REVIEW OF SYSTEMS: No CV, , pulmonary, eye system symptoms on review. MENTAL STATUS EXAMINATION: The patient is reasonably oriented. Speech is coherent, abstraction fair, computation somewhat impaired, language function intact. Mood and affect is improved. LABORATORY DATA: Reviewed. IMPRESSION: Unchanged from initial note. PLAN: No change from initial note. MAN Paula LINN MD DR: BENI/cynthia JOB#: [id number] / [id number]
--- NOTE | 2019-07-23 23:16 | NUR ---
Pt located in dayroom this evening, interacting with peers and working on puzzles. Pt calm, cooperative and compliant with medications. Pt continues to complain of constipation. PRN Miralax administered.
--- NOTE | 2019-07-23 23:18 | PN ---
DATE: 07/23/2019 SUBJECTIVE: The patient was seen today, met with the staff, chart reviewed and also covering for Dr. Moser. The patient continues to having problems with increased stress. Denies of any suicidal ideation. Denies of any delusional thinking. Also, denies of having any overt psychotic symptoms, but she still believes when she scratches her scalp, she sees bugs falling. The patient still feels that there are bugs on her body. The patient apparently has a fixed delusion about this. OBSERVATION: VITAL SIGNS: Temperature 96.8, blood pressure 118/64, pulse 64, respirations 20, O2 sat 98%. Slept about 7 hours last night. LABORATORY DATA: The patient's lab reviewed. MEDICATIONS: The patient's current medications include melatonin 3 mg at night, fluoxetine 20 mg daily, Risperdal 0.25 mg at night. The patient is also on prednisone 10 mg daily. ASSESSMENT: The patient's diagnosis is generalized anxiety disorder; delusional disorder, not otherwise specified. PLAN: Continue with the current treatment plan. The patient is not having any side effects to medications. MISTI HANNA MD DR: TONY/cynthia JOB#: [id number] / [id number]
[2019-07-24 06:01] VITALS: BP 114/61
[2019-07-24] MEDS: FLUoxetine HCL 20 MG CAPSULE PO SCH (08:03)
[2019-07-24] MEDS: MAGNESIUM OXIDE 400 MG TABLET PO SCH (08:03)
[2019-07-24] MEDS: CALCIUM CARB/VIT D3 500/200 TABLET PO SCH (08:03)
[2019-07-24] MEDS: TRIAMCINOLONE ACETONIDE 0.1% TOPICAL CREAM 15GM TUBE. TP SCH (08:03)
[2019-07-24] MEDS: MULTIVITAMIN with MINERAL TABLET. PO SCH (08:03)
[2019-07-24] MEDS: predniSONE 10 MG TABLET PO SCH (08:03)
[2019-07-24] MEDS: METHYL SALICYLATE/MENTHOL TOPICAL OINTMENT 57GM TUBE. TP PRN (08:04)
--- NOTE | 2019-07-24 09:17 | NUR ---
WEEKLY NOTE Pt. is alert and orient X4. Pt. denies SI, hallucinations, or delusions. Pt. is medication compliant and cooperative with assessments. Pt. has been pleasant and interactive with both staff and other pts. Pt. is tentatively schedule to discharge back to her apartment the middle of next week with outpatient follow up service through [facility].
--- NOTE | 2019-07-24 09:58 | NUR ---
KENNA met with pt., per daughter's request. Pt. reports she continues to have trouble sleeping and has "more pain then normal." KENNA explained to pt. her pit manager will not allow pt. to get an outside music director but that pt. daughter does plan to clean pt. apartment prior to discharge. KENNA explained to pt., her daughter is concerned pt. will resort back to the behaviors she had prior to her arrival, as she continues to have anxiety regarding the bed bugs. Pt. did become somewhat anxious and upset during the conversation, as she stated "They go through cycles." KENNA also explained to pt., the need to not bother the pit manager regarding this matter. Pt. reports one more write up and she will be evicted. After extended conversation, pt. did commit to unpacking her things when she returns and reports she will not bother the pit manager. Pt. continues to be open to outpatient counseling at the [facility]. Pt. feels she "is on vacation" as her family has reported she has smiled more here then she has in a long time. Pt. expressed the desire to spend time with her friends and return to the [facility].
--- NOTE | 2019-07-24 10:34 | NUR ---
Nursing Note Patient is in the dining room, pleasant, and social. She is compliant with medications and cooperative with assessments. She is AOx4. She denies depression, visual hallucinations and delusions. Patient has been interactive with both staff and other patients. She is currently in the day room participating in group. Will continue to monitor.
[2019-07-24 16:02] VITALS: BP 105/70
--- NOTE | 2019-07-24 19:43 | NUR ---
WEEKLY ACTIVITY THERAPY NOTE Date of Admission: 07/16/2019 Date of AT Assessment: 07/19/2019 Goal aimed: to increase self-esteem and engagement Initial Goal: Pt. will participate in all Activity Therapy groups that are offered. Weekly progress towards goal: slept through one group and chose to not watch [employer] movie on Sunday Group participation level: full Weekly highlights: willing to follow Linden Chi moves on Sunday and drumming activity on Sunday Behaviors observed: usually fully engaged, smiled often, chats with peers, gives insight/ shares experiences, reports depression and negative thinking during assessment Plan: no change to goal Beneficial adaptations: wake up/ invites to group
--- NOTE | 2019-07-24 19:54 | PN ---
DATE: 07/24/2019 SUBJECTIVE: The patient was seen today, I met with the staff, chart reviewed. Staff reports no evidence of any psychosis, not verbalized any suicidal ideation. The patient continues to have high level of anxiety. The patient still has some delusional thinking, which is fixed and sees bugs on her upper extremities and she also demonstrated that when she scratches her scalp, when things fall, and she thinks that all bugs are running around. The patient is not acting upon her delusions. OBSERVATION: VITAL SIGNS: Temperature 97.4, blood pressure 114/61, pulse 59, respirations 20, O2 sat 94%. Slept about 6 hours last night. CURRENT MEDICATIONS: The patient's current medications include melatonin 3 mg at night, fluoxetine 20 mg daily, Risperdal 0.25 mg at night. The patient is also on prednisone 10 mg daily. ASSESSMENT: Generalized anxiety disorder, delusional disorder. PLAN: Continue with the current treatment plan. LENGTH OF STAY: 3-5 days. MISTI HANNA MD DR: TONY/cynthia JOB#: [id number] / [id number]
[2019-07-24] MEDS: MELATONIN 3 MG TABLET PO SCH (20:20)
[2019-07-24] MEDS: risperiDONE 0.25 MG TABLET. PO SCH (20:20)
[2019-07-24] MEDS: MAG HYDROX/AL HYDROX/SIMETH 30 ML ORAL.SUSP PO PRN (20:48)
--- NOTE | 2019-07-25 00:51 | NUR ---
Pt located in the dayroom this evening, putting a puzzle together with another pt. Compliant with medications and assessment. pt had no complaints at the time.
[2019-07-25 05:49] VITALS: BP 123/64
[2019-07-25] MEDS: CALCIUM CARB/VIT D3 500/200 TABLET PO SCH (08:05)
[2019-07-25] MEDS: MAGNESIUM OXIDE 400 MG TABLET PO SCH (08:05)
[2019-07-25] MEDS: MULTIVITAMIN with MINERAL TABLET. PO SCH (08:05)
[2019-07-25] MEDS: predniSONE 10 MG TABLET PO SCH (08:05)
[2019-07-25] MEDS: FLUoxetine HCL 20 MG CAPSULE PO SCH (08:05)
[2019-07-25] MEDS: TRIAMCINOLONE ACETONIDE 0.1% TOPICAL CREAM 15GM TUBE. TP SCH (08:06)
--- NOTE | 2019-07-25 10:30 | NUR ---
KENNA met with pt. to discuss how she is feeling regarding her return to her apartment. Pt. still believes the bed bugs are not gone, but is trying to remain optimistic. Pt. shared she is looking forward to being with friends and going back to the [facility]. Pt. remains open to outpatient therapy and perhaps a case manage through the [facility]. Pt. appeared in good spirits and reports she is feeling better.
[2019-07-25] MEDS: METHYL SALICYLATE/MENTHOL TOPICAL OINTMENT 57GM TUBE. TP PRN (10:40)
--- NOTE | 2019-07-25 11:04 | NUR ---
Patient was in the dining room during morning rounding. Took medications whole, allowed for morning assessment. Patient mentioned wanting some muscle rub on her back and shoulders. This was given @1040. No agitation noted, pt denies any other pain. Has been visiting with other patients. Will continue to monitor.
--- NOTE | 2019-07-25 12:19 | NUR ---
SW received permission from pt. daughter, Nancy, to faxed paperwork to the [facility] in [place] and to schedule follow up services for outpatient care.
[2019-07-25 16:22] VITALS: BP 99/63
[2019-07-25] MEDS: risperiDONE 0.25 MG TABLET. PO SCH (19:43)
[2019-07-25] MEDS: MELATONIN 3 MG TABLET PO SCH (19:44)
--- NOTE | 2019-07-25 20:56 | NUR ---
Nursing note: Assumed care of pt in the day room. She was pleasant and cooperative, no c/o pain, no behaviors. She is watching a movie with peers.
--- NOTE | 2019-07-26 00:16 | PN ---
DATE: 07/25/2019 SUBJECTIVE: The patient was seen today, met with the staff, chart reviewed. Staff reports no major behavior problems. The patient is complaining of not able to sleep. The patient has not complained about having any visual hallucinations including seeing bugs on her clothing. OBSERVATION: VITAL SIGNS: Temperature 97.8, blood pressure 123/64, pulse 73, respirations 16, O2 sat 94%. Slept about 7 hours last night. LABORATORY DATA: The patient's lab reviewed. MEDICATIONS: The patient's current medications include melatonin 3 mg at night, fluoxetine 20 mg daily, Risperdal 0.25 mg at night. The patient is also on prednisone 10 mg daily. ASSESSMENT: 1. Generalized anxiety disorder. 2. Delusional disorder, unspecified. PLAN: Continue with the treatment. The patient's melatonin to be increased to 6 mg at night. MISTI HANNA MD DR: TONY/cynthia JOB#: [id number] / [id number]
[2019-07-26 06:37] VITALS: BP 114/74
[2019-07-26] MEDS: MAGNESIUM OXIDE 400 MG TABLET PO SCH (08:43)
[2019-07-26] MEDS: FLUoxetine HCL 20 MG CAPSULE PO SCH (08:43)
[2019-07-26] MEDS: MULTIVITAMIN with MINERAL TABLET. PO SCH (08:43)
[2019-07-26] MEDS: CALCIUM CARB/VIT D3 500/200 TABLET PO SCH (08:43)
[2019-07-26] MEDS: predniSONE 10 MG TABLET PO SCH (08:43)
[2019-07-26] MEDS: MAG HYDROX/AL HYDROX/SIMETH 30 ML ORAL.SUSP PO PRN ×2 (08:44→20:34)
[2019-07-26] MEDS: METHYL SALICYLATE/MENTHOL TOPICAL OINTMENT 57GM TUBE. TP PRN (08:44)
[2019-07-26] MEDS: TRIAMCINOLONE ACETONIDE 0.1% TOPICAL CREAM 15GM TUBE. TP SCH (08:44)
--- NOTE | 2019-07-26 11:09 | NUR ---
Patient was in the dining room during morning rounding, took medications whole, allowed for morning assessment. Patient mentioned to the nurse that she wanted Mylanta and analgesic balm. This was given @0844. Patient denies pain, has been cheerful and visiting with other patients. Will continue to monitor.
[2019-07-26 15:51] VITALS: BP 109/72
[2019-07-26] MEDS: risperiDONE 0.25 MG TABLET. PO SCH (20:16)
[2019-07-26] MEDS: MELATONIN 3 MG TABLET PO SCH (20:17)
[2019-07-26] MEDS: MAGNESIUM HYDROXIDE 2,400 MG/30 ML ORAL.SUSP. PO PRN (20:33)
--- NOTE | 2019-07-26 22:04 | PN ---
DATE: 07/26/2019 SUBJECTIVE: The patient was seen today, met with the staff, chart reviewed. The patient still withdrawn, isolative, not shown any major behavior problems. The patient is still complaining of not able to sleep, but sleeping fairly well. The patient is no longer complaining of any visual or auditory hallucinations including seeing bugs on her clothing. OBSERVATION: VITAL SIGNS: Temperature 97.8, blood pressure 109/72, pulse 69, respirations 16, O2 sat 95%. The patient slept about 7-1/2 hours last night. The patient's appetite is fair. LABORATORY DATA: The patient's lab reviewed. MEDICATIONS: The patient's current medications include melatonin 3 mg at night, fluoxetine 20 mg daily, Risperdal 0.25 mg at night. The patient is not having any side effects. ASSESSMENT: Generalized anxiety disorder, delusional disorder, unspecified. PLAN: To continue with the treatment. The patient's melatonin was increased to 6 mg last night. LENGTH OF STAY: 3-5 days. MISTI HANNA MD DR: TONY/cynthia JOB#: [id number] / [id number]
--- NOTE | 2019-07-26 22:51 | NUR ---
Nursing Note Pt given yaritza and MOM states she has dyspepsia and constipation since arrival to our unit. Pleasant and cooperative very social with her peers.
[2019-07-27 06:23] VITALS: BP 124/77
[2019-07-27] MEDS: FLUoxetine HCL 20 MG CAPSULE PO SCH (08:25)
[2019-07-27] MEDS: predniSONE 10 MG TABLET PO SCH (08:25)
[2019-07-27] MEDS: CALCIUM CARB/VIT D3 500/200 TABLET PO SCH (08:25)
[2019-07-27] MEDS: MULTIVITAMIN with MINERAL TABLET. PO SCH (08:25)
[2019-07-27] MEDS: MAGNESIUM OXIDE 400 MG TABLET PO SCH (08:25)
[2019-07-27] MEDS: TRIAMCINOLONE ACETONIDE 0.1% TOPICAL CREAM 15GM TUBE. TP SCH (08:26)
[2019-07-27] MEDS: METHYL SALICYLATE/MENTHOL TOPICAL OINTMENT 57GM TUBE. TP PRN (09:10)
--- NOTE | 2019-07-27 10:35 | NUR ---
Nursing note: Pt in dining room this morning for meds and assessment. Pt was compliant with taking her meds whole and cooperative with assessment. She has been pleasant and social with her peers this morning. Pt c/o pain in her knees, neck, and shoulders. PRN analgesic balm was administered after breakfast. Will continue to monitor.
[2019-07-27 15:33] VITALS: BP 105/65
[2019-07-27] MEDS: MAGNESIUM HYDROXIDE 2,400 MG/30 ML ORAL.SUSP. PO PRN (19:38)
[2019-07-27] MEDS: MAG HYDROX/AL HYDROX/SIMETH 30 ML ORAL.SUSP PO PRN (19:38)
[2019-07-27] MEDS: MELATONIN 3 MG TABLET PO SCH (19:38)
[2019-07-27] MEDS: risperiDONE 0.25 MG TABLET. PO SCH (19:38)
--- NOTE | 2019-07-27 20:25 | NUR ---
Nursing Note Pt still constipated, popcorn and Milk of mag with mylanta. Pt pleasant and cooperative and compliant with meds.
--- NOTE | 2019-07-27 22:46 | PN ---
DATE: 07/27/2019 SUBJECTIVE: The patient was seen today, met with the staff, chart reviewed. The patient is complaining of increased sleep last night and apparently, she did not want to take 6 mg of melatonin and took only 3 mg. The patient is not presenting with any other psychotic symptoms. No visual or auditory hallucinations at this time. OBSERVATION: VITAL SIGNS: Temperature 97.8, blood pressure 109/72, pulse 69, respirations 16, O2 sat 95%. The patient is complaining of excessive sleepiness from melatonin. The patient is not having any other physical complaints. LABORATORY DATA: The patient's lab reviewed. MEDICATIONS: The patient's current medications include melatonin that was decreased to 3 mg at night, Prozac 20 mg daily, Risperdal 0.25 mg at night. The patient is not having any side effects. ASSESSMENT: Generalized anxiety disorder; delusional disorder, unspecified. PLAN: To continue with the treatment. LENGTH OF STAY: 3-5 days. MISTI HANNA MD DR: TONY/cynthia JOB#: [id number] / [id number]
[2019-07-28 05:54] VITALS: BP 114/72
[2019-07-28] MEDS: MULTIVITAMIN with MINERAL TABLET. PO SCH (08:31)
[2019-07-28] MEDS: TRIAMCINOLONE ACETONIDE 0.1% TOPICAL CREAM 15GM TUBE. TP SCH (08:31)
[2019-07-28] MEDS: predniSONE 10 MG TABLET PO SCH (08:31)
[2019-07-28] MEDS: CALCIUM CARB/VIT D3 500/200 TABLET PO SCH (08:31)
[2019-07-28] MEDS: FLUoxetine HCL 20 MG CAPSULE PO SCH (08:31)
[2019-07-28] MEDS: MAGNESIUM OXIDE 400 MG TABLET PO SCH (08:31)
[2019-07-28] MEDS: METHYL SALICYLATE/MENTHOL TOPICAL OINTMENT 57GM TUBE. TP PRN (08:58)
--- NOTE | 2019-07-28 10:12 | NUR ---
Nursing note: Pt in dining room for morning meds and assessment. She was compliant with her meds whole and was cooperative with her assessment. Pt pleasant and interactive throughout interaction. Analgesic balm administered to pt's neck, shoulders, and knees per pt request. Pt is currently in the day room. Will continue to monitor.
--- NOTE | 2019-07-28 11:49 | NUR ---
SW met with pt. at pt. request. Pt. shared she is not having a very good day physically or mentally. Pt. was upset at breakfast due to feeling unable to ask for assistance from staff. Pt. was also worried about a magazine and printouts she was unable to find, which SW found and brought them to the pt. Lastly, pt. reports she did not sleep well last night but was willing to lay down to try to nap before lunch.
--- NOTE | 2019-07-28 11:52 | NUR ---
KENNA contacted [facility] in [place], for outpatient follow up services. Pt. is scheduled for an intake on August 14, 2019 at 10:00 a.m. SW reported pt. would not only benefit from counseling services but also case management services, which the second baker did say she would make note of on pt. file. KENNA will fax pt. paperwork to [facility], at time of discharge.
[2019-07-28 15:38] VITALS: BP 101/66
--- NOTE | 2019-07-28 15:42 | RAD ---
CT of the cervical spine without comparison for neck pain. TECHNIQUE: Contiguous helical 2 mm axial images are obtained through the cervical spine. Sagittal and coronal reformations are evaluated. FINDINGS: There is reversal of the normal cervical lordosis at C5-6. No definite fracture or acute osseous abnormality is seen. The atlantoaxial articulation is intact. Prevertebral soft tissues are grossly unremarkable. There multiple degenerative changes throughout cervical spine, primarily involving C5-6 and C6-7, with a bridging anterior osteophyte at C6-7. Small posterior osteophytes are seen at both levels as well. There is no definite bony central canal stenosis. There is bulky facet arthrosis and there are disc osteophyte complexes at multiple levels, and these likely result in at least moderate neural foraminal narrowing at C3-4 on the right, and at least mild neuroforaminal narrowing at C3-4 on the left, C5-6 on the left, and C6-7 on the right. IMPRESSION: 1. No fracture or acute osseous or alignment abnormality of cervical spine. 2. Severe multilevel degenerative changes resulting in reversal of kyphosis at C5-6, and multilevel neuroforaminal narrowing, most notable at C3-4 on the right. PQRS Compliance Statement: One or more of the following individualized dose reduction techniques were utilized for this examination: 1. Automated exposure control 2. Adjustment of the mA and/or kV according to patient size 3. Use of iterative reconstruction technique Electronically signed by: Horacio Regalado MD (07/28/2019 3:39 PM) [id number]
[2019-07-28] MEDS: MELATONIN 3 MG TABLET PO SCH (19:26)
[2019-07-28] MEDS: risperiDONE 0.25 MG TABLET. PO SCH (19:26)
[2019-07-28] MEDS: CYCLOBENZAPRINE 10 MG TABLET. PO SCH (19:55)
--- NOTE | 2019-07-28 21:32 | NUR ---
Nursing Note Dr. Campbell here, orders for flexeril for neck pain, pt has significant disc disease in her neck complains of periodic pain to her upper extremities. Pleasant calm and cooperative this pm, spent the PM in her room reading.
--- NOTE | 2019-07-29 01:16 | PN ---
DATE: 07/28/2019 SUBJECTIVE: The patient was seen today, met with the staff, chart reviewed. The patient complains of feeling tired, runny nose and cold. The patient states she cannot take the flu shot because it made her polyarthritis worse, and she was advised to not take the flu shots. The patient denies feeling depressed. The patient states she is ready to go home. OBSERVATION: VITAL SIGNS: Temperature 97.3, blood pressure 114/72, pulse 56, respirations 16, O2 sat 98%. The patient slept about 6 hours last night. The patient is not having any physical complaints. The patient is able to walk without a walker. No falls. MEDICATIONS: The patient's current medications include melatonin 3 mg at night, Prozac 20 mg daily, Risperdal 0.25 mg at night. The patient denies of any side effects to medications. ASSESSMENT: 1. Generalized anxiety disorder. 2. Delusional disorder, unspecified. PLAN: To continue with the treatment. LENGTH OF STAY: 3 to 5 days. MISTI HANNA MD DR: TONY/cynthia JOB#: [id number] / [id number]
[2019-07-29 06:01] VITALS: BP 122/73
[2019-07-29] MEDS: predniSONE 10 MG TABLET PO SCH (08:04)
[2019-07-29] MEDS: CALCIUM CARB/VIT D3 500/200 TABLET PO SCH (08:04)
[2019-07-29] MEDS: TRIAMCINOLONE ACETONIDE 0.1% TOPICAL CREAM 15GM TUBE. TP SCH (08:04)
[2019-07-29] MEDS: FLUoxetine HCL 20 MG CAPSULE PO SCH (08:04)
[2019-07-29] MEDS: MAGNESIUM OXIDE 400 MG TABLET PO SCH (08:04)
[2019-07-29] MEDS: MULTIVITAMIN with MINERAL TABLET. PO SCH (08:04)
--- NOTE | 2019-07-29 11:14 | NUR ---
SW spoke to pt. daughter, Nancy, regarding pt. discharge scheduled for tomorrow. Pt. daughter inquired on pt. diagnoses, which SW shared information from doctor's notes. Nancy also had medical questions. SW transfer Nancy to nurses station to gather this information.
--- NOTE | 2019-07-29 12:32 | NUR ---
[facility] Social Work Discharge Planning Form Patient Name LATISHA YANEZ Admit Date: 07/16/2019 DISCHARGE PLAN Discharge Destination: Home Care Assessment: NA Level II Assessment: NA Transportation: Pt. daughter, Nancy, to transport pt. on 07/30/2019 between 1600 to 1630. Special Instructions/Notes: Please fax discharge paperwork and medications list to the following: DISCHARGE TO HOME: Address: [address] [place] [address] [address] [place] [address] Responsible Libertarian: Nancy Willis Pharmacy: [facility] [address] [place], [place] [id number] [place] [address] Psychiatrist/Mental Health Follow Up: [facility] [address] [place] [address] Intake Appointment: August 14, 2019 at 10:00 a.m. *Please bring insurance card to the first appointment. Primary Care Follow Up: [facility] [address] [place] [address] Appointment: August 05, 2019 at 1:30 p.m.
[2019-07-29 15:52] VITALS: BP 111/71
--- NOTE | 2019-07-29 17:56 | NUR ---
Patient is alert and oriented x 4, speech is clear. Able to make wants and needs known and able to verify understanding of others. Patient is very pleasant and cooperative with staff in all cares this shift.
[2019-07-29] MEDS: risperiDONE 0.25 MG TABLET. PO SCH (20:37)
[2019-07-29] MEDS: CYCLOBENZAPRINE 10 MG TABLET. PO SCH (20:37)
[2019-07-29] MEDS: MELATONIN 3 MG TABLET PO SCH (20:37)
[2019-07-29] MEDS: METHYL SALICYLATE/MENTHOL TOPICAL OINTMENT 57GM TUBE. TP PRN (20:43)
--- NOTE | 2019-07-30 00:28 | NUR ---
Pt in day room visiting with other pts on assessment. She was compliant with her meds whole. Pt pleasant and interactive with staff. Analgesic balm administered to pt's neck, shoulders, and knees per pt request.
--- NOTE | 2019-07-30 00:45 | PN ---
DATE: 07/28/2019 SUBJECTIVE: The patient was seen today, met with the staff, chart reviewed. Staff reports no major behavior problems. The patient continues to talk about her medical issues, having chronic pain. OBSERVATION: VITAL SIGNS: Temperature 97.6, blood pressure 122/73, pulse 61, respirations 18, O2 sat 97%. Slept about 7 hours last night. The patient's appetite is fair. The patient denies of any physical complaints. The patient did not have any falls. MEDICATIONS: The patient's current medications include melatonin 3 mg at night, Prozac 20 mg daily, Risperdal 0.25 mg at night. The patient denies of any side effects to medications. ASSESSMENT: 1. Delusional disorder, unspecified. 2. Generalized anxiety disorder. PLAN: To continue with the treatment. The patient is scheduled for discharge on 07/30/2019. Plan to continue with the treatment. MISTI HANNA MD DR: TONY/cynthia JOB#: [id number] / [id number]
[2019-07-30] MEDS ORDERED: CALC-56 PO (01:22)
[2019-07-30] MEDS ORDERED: MAGN400C PO (01:22)
[2019-07-30] MEDS ORDERED: MELA3TAB43 PO (01:23)
[2019-07-30] MEDS ORDERED: MULT-301 PO (01:24)
[2019-07-30] MEDS ORDERED: RISP0.5T24 PO (01:25)
[2019-07-30 05:59] VITALS: BP 116/70
[2019-07-30] MEDS: FLUoxetine HCL 20 MG CAPSULE PO SCH (08:01)
[2019-07-30] MEDS: MULTIVITAMIN with MINERAL TABLET. PO SCH (08:01)
[2019-07-30] MEDS: TRIAMCINOLONE ACETONIDE 0.1% TOPICAL CREAM 15GM TUBE. TP SCH (08:01)
[2019-07-30] MEDS: CALCIUM CARB/VIT D3 500/200 TABLET PO SCH (08:01)
[2019-07-30] MEDS: MAGNESIUM OXIDE 400 MG TABLET PO SCH (08:01)
[2019-07-30] MEDS: predniSONE 10 MG TABLET PO SCH (08:01)
[2019-07-30] MEDS ORDERED: CYCL5TAB PO (09:23)
--- NOTE | 2019-07-30 14:49 | NUR ---
KENNA faxed pt. paperwork to Marc, [employer] at [facility] in [place], for follow up outpatient services.
--- NOTE | 2019-07-30 16:00 | NUR ---
Transition Record was faxed to follow-up provider with the following elements: Reason for admission, procedures, tests, principal diagnosis, pending studies, patient instructions, 12/03 contact information for unit, phone number to obtain pending test results, plan for follow-up care, physician follow-up, advanced directive information, and medication list with dose, duration and instructions. This information was included in the following documents: History and physical, lab results, study results, progress notes, social work planning form, DC instruction form, patient visit summary, and medication reconciliation form. Date & time record faxed: Faxed 07/30 Record faxed to: [facility]@ [phone]. Psychiatrist[facility] LYRIC Dias @[phone]. Also PCP Austin MUHAMMAD- [phone]. Record discussed with/ report given to: Report given to daughter at [facility] as well as reminder of upcoming appointments.
--- NOTE | 2019-07-30 16:15 | NUR ---
KENNA met with pt. prior to discharge. Pt. shared she was looking forward to spending quality time with her grandchildren and friends. SW encouraged pt. to plan at least one activity per day to which pt. replied that was a good idea. Pt. talked about going to the library and how there are several people at the library when she does go. Pt. also talked about connecting with a lady who, prior to pt. admittance to the hospital, had discuss with pt. the desire to learn more about the bible/druze. Pt. also talked about going to the [employer]. SW encourage pt. to utilize her safety plan if she begins to feel overwhelmed. SW also reminded pt. to utilize community resources such as the ER or [facility] if needed. Pt. reported no anxious feelings, SI, or delusional behavior at the time of this meeting.
[2019-07-30 16:39] VITALS: BP 114/69
--- NOTE | 2019-07-30 17:50 | DS ---
DATE OF DISCHARGE: 07/30/2019 FINAL DIAGNOSES: AXIS I: 1. Major depressive disorder with psychotic features. 2. Obsessive compulsive disorder. 3. Anxiety disorder, unspecified. 4. Psychotic disorder, unspecified. 5. Mild cognitive impairment. AXIS II: None. AXIS III: Polymyalgia rheumatica, rheumatoid arthritis, lymphoma in remission, and seborrheic keratosis. REASON FOR ADMISSION: This 74-year-old female was admitted to the [facility] inpatient program at [facility] from home with history of depression, isolation, withdrawal, feeling hopeless and helpless, worthless and making suicidal statements including wanting to . The patient was also not sleeping well, decreased appetite, high level of anxiety. The patient also admitted to having problems with thinking including being delusional, paranoid and also hallucinating at times. The patient apparently failed outpatient treatment. She was referred here for stabilization. HISTORY OF PRESENT ILLNESS: The patient has a history of depression and also with marked insomnia and poor coping skills. The patient also at the time of admission complained of bed bugs and having suicidal ideation, but no specific plans. The patient apparently became more delusional and paranoid as she started having visual hallucinations, mostly seeing bugs all over including on her scalp and all over her clothing. HOSPITAL COURSE: The patient had a physical exam, routine lab work including CBC, chem profile, urinalysis, which were all within normal range. The patient's potassium was 145. The patient's BUN was 26. The patient's triglycerides were 165, cholesterol 229, LDL 146, HDL 50. The patient also had a CT scan of her head, which showed no acute abnormality and also cervical spine. No evidence of any fracture, but showed severe multilevel degenerative changes resulting in kyphosis at C5-C6 and neural foraminal narrowing, most notable at C3 and C4 on the right. The patient was involved in the treatment program including individual therapy, group therapy, activity therapy. The patient was continued on medications including Flexeril 5 mg at night, melatonin 3 mg at night, fluoxetine 40 mg daily, Risperdal 0.25 mg at night. The patient did not respond to the treatment. The patient is no longer showing any major problems. The patient will be discharged home with a recommendation to follow up with the outpatient treatment and continue with the medications. AFTERCARE PLAN: The patient at the time of discharge was medically stable. The patient will continue with the current medications. Continue follow up with outpatient treatment. MISTI HANNA MD DR: TONY/cynthia JOB#: [id number] / [id number]
== END 2019-07-30 17:54 | disposition home or self-care (01) | DRG 885 ==
LOC: ER 14:36 → GEROPSY 18:20
PROVIDERS: ADMIT Psychiatry & Neurology Psychiatry; ATTEND Psychiatry & Neurology Psychiatry
DX: F33.3 Major depressive disorder, recurrent, severe with psychotic symptoms (principal); C85.90 Non-Hodgkin lymphoma, unspecified, unspecified site; R45.851 Suicidal ideations; F41.9 Anxiety disorder, unspecified; F41.1 Generalized anxiety disorder; F42.9 Obsessive-compulsive disorder, unspecified; F63.9 Impulse disorder, unspecified; G31.84 Mild cognitive impairment of uncertain or unknown etiology; G47.00 Insomnia, unspecified; G89.29 Other chronic pain; L82.1 Other seborrheic keratosis; M06.9 Rheumatoid arthritis, unspecified; M35.3 Polymyalgia rheumatica; M40.209 Unspecified kyphosis, site unspecified; Z66 Do not resuscitate; Z79.899 Other long term (current) drug therapy; Z86.19 Personal history of other infectious and parasitic diseases; Z90.710 Acquired absence of both cervix and uterus; K21.9 Gastro-esophageal reflux disease without esophagitis; M19.90 Unspecified osteoarthritis, unspecified site
CPT/HCPCS: 36415; 70450; 72125; 80048; 80053; 80061; 80076; 80307; 81001; 82306; 82607; 83036; 83540; 83550; 83735; 84436; 84443; 84480; 85025; 86592; 93005; G0480; J7512; 99285-25